=== PATIENT | male | born 2005 | race Caucasian/White ===

== ENCOUNTER 2024-04-23 18:10 | Outpatient (REF) | payer OTHER, SELFPAY ==
--- NOTE | ~2024-04-23 | MR_ITS ---
CLINICAL HISTORY: Pain, Instability MR right knee without gadolinium Comparison: None Findings: Anterior cruciate ligament is intact. Posterior cruciate ligament is intact. Small horizontal tear of posterior body and posterior horn of the medial meniscus with dorsally projected 0.4 cm parameniscal cysts. No tear of the lateral meniscus. Medial collateral ligament complex intact. Lateral collateral ligament complex intact. Small effusion. Small posterior cysts (Hidalgo's) measures 0.5 cm. Small bone islands in lateral tibial plateau and distal femur. Imaged physis (growth plates) remain partially open. Mild edema of medial aspect of the patella. Patellar retinaculum remains intact. Extensor mechanism is intact. Mild-minimal cartilage loss of the medial patellar facet. No defined cartilage loss or osteochondral lesion of the medial compartment or lateral compartment. IMPRESSION: 1. Small horizontal tear of posterior aspect of medial meniscus. 2. Cruciate ligaments remain intact. This document has been electronically signed by: Jarrod Hunt MD on 04/23/2024 19:02:17
== END 2024-04-23 18:11 | disposition home or self-care (01) ==
LOC: HO.MRI 18:10
PROVIDERS: PCP Student in an Organized Health Care Education/Training Program; Visit Provider Student in an Organized Health Care Education/Training Program
DX: M25.361 Other instability, right knee (principal); M25.561 Pain in right knee
CPT/HCPCS: 73721

== ENCOUNTER → 2024-04-23 18:15 | Outpatient (BNV) | payer OTHER, SELFPAY | PROVIDERS: PCP Student in an Organized Health Care Education/Training Program; Visit Provider Radiology Neuroradiology | DX: S83.241A Other tear of medial meniscus, current injury, right knee, initial encounter (principal) | CPT/HCPCS: 73721 ==